=== PATIENT | female | born 1970 | race Caucasian/White ===

== ENCOUNTER 2024-12-12 09:27 | Emergency (ER) | payer OTHER, SELFPAY ==
--- NOTE | 2024-12-12 09:39 | ED.GENMED ---
History of Present Illness
General
Chief Complaint: Musculo-Skeletal Complaint
Time Seen by Provider: 12/12/24 09:33
History of Present Illness
History of Present Illness:
53-year-old female presents the emergency department for evaluation of left shoulder pain, she slipped in her garage and fell with an outstretched, fully abducted left upper extremity. Pain to the left shoulder with paresthesias radiating down the
arm. Denies any head neck or back pain.
Past History
Past History
ED Past Medical History: None
ED Past Surgical History: None
Social History
Tobacco: Non-smoker
Alcohol: None
Drug: None
Personal:
Living: with family
Review of Systems
Review of Systems
Allergies reviewed?: Yes
All Other Systems: ROS reviewed and negative except as documented in HPI and ROS
Phy Exam
Physical Exam
Physical Exam:
GEN: Visibly in pain, holding the left upper extremity flexed and adducted
HEENT: Oral mucosa moist, no scleral icterus
Cardiac: Regular rate
Lung: No respiratory distress, no tachypnea
MSK: Mild swelling to the left shoulder with no gross deformity, no reproducible tenderness to the distal humerus/elbow
Skin: Good color, no pallor or jaundice, no rashes
Neuro: AO x3, moves all extremities freely, sensation intact to light palpation to the left hand and forearm
Psych: Calm, cooperative
Course
Orders/Labs/Results
Orders:
Orders
12/12/24 09:37
Ketorolac [Toradol] 30 mg IM NOW STA
CR Shoulder, Trauma - Left Urgent
Comment:
Reason For Exam: injury
12/12/24 10:10
Tramadol HCl [Ultram] 50 mg PO NOW STA
Vital Signs
Initial and Last Documented VS:
Initial Vital Signs
Temp Pulse Resp BP Pulse Ox
97.6 F 82 20 145/81 96
12/12/24 10:01 12/12/24 10:01 12/12/24 10:01 12/12/24 10:01 12/12/24 10:01
Last Documented Vital Signs
Temp Pulse Resp BP Pulse Ox
97.6 F 82 20 145/81 96
12/12/24 10:01 12/12/24 10:01 12/12/24 10:01 12/12/24 10:01 12/12/24 10:01
MDM/Problems Addressed
MDM/Problems Addressed:
X-rays without acute fracture. Suspect rotator cuff injury based on the mechanism. Sling and Ortho follow-up advised
*Critical Care Note
Total Time (30-74mins, 75-104mins- exclusive of procedures): Not Applicable
ED Attending Note
-
Portions of this chart may have been created with voice recognition software.� Occasional wrong word or��sound alike� substitutions may have occurred due to the inherent limitations of voice recognition software.
Discharge Plan
Departure
Patient Disposition: Home (Routine Discharge)
Date of Disposition: 12/12/24
Time of Disposition: 11:05
Patient with high blood pressure during this ER visit?: No
Discharge Problem:
Sprain of left shoulder
Instructions: Sprain (DC)
Prescriptions:
New
tramadol 50 mg tablet
50 mg PO Q8H PRN (Reason: Pain) Qty: 10 0RF
Referrals:
Macario Ibarra MD [Active] -
Joyce Ramirez MD [Family Provider] -
Activity Restrictions/Additional Instructions:
Ice often
Take Tylenol ibuprofen for pain, use tramadol only for severe pain
If your pain gradually improves over the next 2 to 3 days there is no need for orthopedic follow-up
Try to remove the sling for at least 1 hour a day to stretch the elbow
Interventions
Interventions:
*Risk Screen - Suicide Last Done: 12/12/24 09:42
*General Assessment Last Done: 12/12/24 09:42
*Neglect/Abuse Screening Last Done: 12/12/24 09:42
ED- Fall Risk Assessment Last Done: 12/12/24 09:42
*ED COVID-19 Vaccine History Last Done: 12/12/24 09:42
*Nursing Disposition Last Done: 12/12/24 11:14
ED-Musculoskeletal Assessment Last Done: 12/12/24 09:42
Discharge Date and Time
Discharge Date/Time: 12/12/24 11:16
Print Language: BRITISH
[2024-12-12 09:42] VITALS: BMI 27.4
[2024-12-12] MEDS: TORADOL 30 MG IM (09:47)
[2024-12-12 10:01] VITALS: BP 145/81
[2024-12-12] MEDS: ULTRAM 50 MG PO (10:35)
== END 2024-12-12 11:16 | disposition home or self-care (01) ==
LOC: EMR 09:27
PROVIDERS: EMERGENCY PHYSICIAN Emergency Medicine; FAMILY PHYSICIAN Family Medicine
DX: S43.402A Unspecified sprain of left shoulder joint, initial encounter (principal); W01.0XXA Fall on same level from slipping, tripping and stumbling without subsequent striking against object, initial encounter
CPT/HCPCS: 99284; 96372; 73030

== ENCOUNTER 2025-01-21 07:30 | Outpatient (RCR) | payer OTHER, SELFPAY | END 2025-01-21 23:59 | disposition home or self-care (01) | LOC: RPT 07:30 | PROVIDERS: ATTENDING PHYSICIAN Orthopaedic Surgery; FAMILY PHYSICIAN Family Medicine | DX: S42.295D Other nondisplaced fracture of upper end of left humerus, subsequent encounter for fracture with routine healing (principal); Z73.6 Limitation of activities due to disability | CPT/HCPCS: 97010; 97110; 97140; 97162 ==

== ENCOUNTER 2025-02-23 06:14 | Outpatient (RCR) | payer OTHER, SELFPAY | END 2025-02-23 23:59 | disposition home or self-care (01) | LOC: RPT 06:14 | PROVIDERS: ATTENDING PHYSICIAN Orthopaedic Surgery; FAMILY PHYSICIAN Family Medicine | DX: S42.295D Other nondisplaced fracture of upper end of left humerus, subsequent encounter for fracture with routine healing (principal); Z73.6 Limitation of activities due to disability; M62.81 Muscle weakness (generalized) | CPT/HCPCS: 97010; 97110; 97140 ==

== ENCOUNTER 2025-03-18 06:46 | Outpatient (RCR) | payer OTHER, SELFPAY | END 2025-03-18 23:59 | disposition home or self-care (01) | LOC: RPT 06:46 | PROVIDERS: ATTENDING PHYSICIAN Orthopaedic Surgery; FAMILY PHYSICIAN Family Medicine | DX: S42.295D Other nondisplaced fracture of upper end of left humerus, subsequent encounter for fracture with routine healing (principal); Z73.6 Limitation of activities due to disability; M62.81 Muscle weakness (generalized); X58.XXXD Exposure to other specified factors, subsequent encounter | CPT/HCPCS: 97110; 97140 ==

== ENCOUNTER 2025-04-08 08:01 | Outpatient (RCR) | payer OTHER, SELFPAY | END 2025-04-08 23:59 | disposition home or self-care (01) | LOC: RPT 08:01 | PROVIDERS: ATTENDING PHYSICIAN Orthopaedic Surgery; FAMILY PHYSICIAN Family Medicine | DX: S42.295D Other nondisplaced fracture of upper end of left humerus, subsequent encounter for fracture with routine healing (principal); Z73.6 Limitation of activities due to disability; M62.81 Muscle weakness (generalized) | CPT/HCPCS: 97010; 97110; 97140 ==

== ENCOUNTER 2025-05-16 07:08 | Outpatient (RCR) | payer OTHER, SELFPAY | END 2025-05-26 12:13 | disposition home or self-care (01) | LOC: RPT 07:08 | PROVIDERS: ATTENDING PHYSICIAN Orthopaedic Surgery; FAMILY PHYSICIAN Family Medicine | DX: S42.295D Other nondisplaced fracture of upper end of left humerus, subsequent encounter for fracture with routine healing (principal); Z73.6 Limitation of activities due to disability; M62.81 Muscle weakness (generalized) | CPT/HCPCS: 97110; 97140 ==

== ENCOUNTER → 2025-06-28 07:33 | Outpatient (REF) | payer OTHER, SELFPAY | LOC: RAD 07:33 | PROVIDERS: ATTENDING PHYSICIAN Obstetrics & Gynecology Gynecology; FAMILY PHYSICIAN Family Medicine | DX: Z78.0 Asymptomatic menopausal state (principal) | CPT/HCPCS: 77080 ==